=== PATIENT | male | born 1995 | race Caucasian/White ===

== ENCOUNTER 2024-05-19 16:56 | Emergency (ER) | payer OTHER, SELFPAY ==
--- NOTE | 2024-05-19 16:59 | XRR_ITS ---
PROCEDURE INFORMATION: Exam: XR Right Knee Exam date and time: 05/19/2024 5:23 PM Age: 28 years old Clinical indication: Injury or trauma; Fall; Blunt trauma; Knee; Right TECHNIQUE: Imaging protocol: Radiologic exam of the right knee. Views: 3 views. COMPARISON: No relevant prior studies available. FINDINGS: Bones/joints: Normal. Soft tissues: Normal. XR/XR knee RT 3V* [id number] IMPRESSION: No acute findings.
[2024-05-19 17:19] VITALS: BP 148/91; PULSE 82; RESP 18; TEMP 36.7; O2SAT 97; BMI 25.0
--- NOTE | 2024-05-19 18:15 | W.ED.EXTPRO ---
HPI - Extremity Problem General: Chief complaint: Extremity Injury, Lower Stated complaint: rt knee inj Time Seen by Provider: 05/19/24 18:05 History of Present Illness: Patient presents to the ER after 70 pound dog ran to his right knee and he twisted the knee and now it hurts and feels unstable when he walks. Patient is able to bear weight on right knee with minimal pain however he feels like it twists and is going to pop out when he puts pressure on it. He rates pain at 2 out of 10 right now currently. 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 Patient is off work tomorrow and will go back on Wednesday if possible. Related Data Allergies Allergy/AdvReac Type Severity Reaction Status Date / Time No Known Allergies Allergy Verified 05/19/24 17:24 Review of Systems General: Reports: 10 or more systems reviewed and unremarkable except in HPI and below Physical Exam Const: COMMON NORMALS: no acute distress, average body habitus, patient oriented x3, no limitations, healthy appearing, alert and well nourished Neck/C-Spine: COMMON NORMALS: no JVD Chest: COMMONS NORMALS: normal inspection of the chest and normal palpation of entire chest wall Resp: COMMON NORMALS: normal respiratory effort, No retractions, No use of accessory muscles and clear to auscultation bilaterally AUSCULTATION: clear to auscultation bilaterally Cardio: COMMON NORMALS: no JVD, regular rate, regular rhythm, S1 normal heart sound present, S2 normal heart sound present, No gallops present (Cardio), No clicks present (Cardio), No murmurs present (Cardio) and No rub (Cardio) RATE: regular rate RHYTHM: regular rhythm HEART SOUNDS: S1 normal heart sound present and S2 normal heart sound present GI: COMMON NORMALS: Normal to inspection, nondistended, normoactive bowel sounds present, Soft to palpation, non-tender, No hepatosplenomegaly present and no masses PALPATION: Yes Soft to palpation and Yes No hepatosplenomegaly present Neuro: COMMON NORMALS: patient oriented x3 SENSORIUM/ORIENTATION: Yes alert Course Vital Signs: Vital signs: Vital Signs Temperature 98.1 F 05/19/24 17:19 Pulse Rate 80 05/19/24 18:24 Respiratory Rate 18 05/19/24 17:19 Blood Pressure 148/91 05/19/24 17:19 Pulse Oximetry 98 05/19/24 18:24 Oxygen Delivery Me thod Room Air 05/19/24 17:19 MDM - Extremity (Nontraumatic) Medical Decision Making X-ray is read as negative by the radiologist. Patient be discharged home with an Zafar wrap. Medical Records I reviewed the patient's medical records. Lab Data I reviewed the patient's lab results. Radiology Impressions Knee X-Ray 05/19/24 16:59 IMPRESSION: No acute findings. All radiology interpretation(s) finalized by discharge Discharge Plan Discharge Patient Disposition: Home Clinical Impression: Acute pain of right knee Condition: Stable Discharge Orders: Discharge ED (Routine); Ordered 05/19/24 Ordered By: Rob Fernández Referrals: Shobha White MD [Primary Care Provider] - 1 week Patient Instructions: Knee Pain (ED) Activity Restrictions/Additional Instructions: Please Zafar wrap right knee as needed for pain control. Continue [id number] use of Tylenol and Motrin as directed. Please limit use for the next 24 hours. If still having significant amount of pain in 7 days please follow-up with your PCP or return to the ER as you may need a MRI and/or orthopedic referral. Print Language: [place] Coding Level of Care Code ED [employer] for Dejan Fernandez
[2024-05-19 18:24] VITALS: PULSE 80; O2SAT 98
== END 2024-05-19 18:26 | disposition home or self-care (01) ==
PROVIDERS: Emergency Provider Emergency Medicine; PCP Family Medicine
DX: M25.561 Pain in right knee (principal)
CPT/HCPCS: 73562; 99283